=== PATIENT | female | born 2000 | race Two or more races ===

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

== ENCOUNTER 2021-02-10 15:51 | Emergency (ER) | payer OTHER ==
--- NOTE | 2021-02-10 18:17 | EDM.PDOC ---
ED HPI GENERAL MEDICAL PROBLEM - General Chief Complaint: Flank Pain Stated Complaint: POSS KIDNEY INFECTION Time Seen by Provider: 02/10/21 17:57 Source of Information: Reports: Patient History Limitations: Reports: No Limitations - History of Present Illness INITIAL COMMENTS - FREE TEXT/NARRATIVE: The patient presents with right flank pain and dysuria. This started a couple days ago with dysuria. She has some mild right flank pain. She never had a kidney stone before. She has no nausea or vomiting. She has no fever or chills. She has no cough, chest pain or shortness of breath. 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 (See Below) - Past Surgical History HEENT Surgical History: Reports: Tonsillectomy Social & Family History - Family History Family Medical History: No Pertinent Family History - Caffeine Use Caffeine Use: Reports: Coffee, Soda - Living Situation & Occupation Living situation: Reports: with Family ED ROS GENERAL - Review of Systems Review Of Systems: See Below Constitutional: Reports: No Symptoms HEENT: Reports: No Symptoms Respiratory: Reports: No Symptoms Cardiovascular: Reports: No Symptoms Endocrine: Reports: No Symptoms GI/Abdominal: Reports: No Symptoms : Reports: Dysuria, Flank Pain Musculoskeletal: Reports: Back Pain Skin: Reports: No Symptoms Neurological: Reports: No Symptoms ED EXAM, GI/ABD - Physical Exam Exam: See Below Exam Limited By: No Limitations General Appearance: Alert, No Apparent Distress Ears: Normal External Exam Nose: Normal Inspection Head: Atraumatic, Normocephalic Neck: Normal Inspection Respiratory/Chest: No Respiratory Distress, Lungs Clear, Normal Breath Sounds Cardiovascular: Regular Rate, Rhythm, No Edema, No Murmur, No Rub GI/Abdominal Exam: Soft, Non-Tender, No Organomegaly Back Exam: CVA Tenderness (R) (mild) Course - Vital Signs Last Recorded V/S: Last Vital Signs Temp 99.2 F 02/10/21 18:01 Pulse 76 02/10/21 18:01 Resp 16 02/10/21 18:01 BP 122/79 02/10/21 18:01 Pulse Ox 100 02/10/21 18:01 - Orders/Labs/Meds Labs: Laboratory Tests 02/10/21 02/10/21 02/10/21 Range/Units 18: 18:29 18:29 WBC 8.96 (3.98-10.04) K/mm3 RBC 5.06 (3.98-5.22) M/mm3 Hgb 15.1 D (11.2-15.7) gm/dl Hct 44.8 (34.1-44.9) % MCV 88.5 (79.4-94.8) fl MCH 29.8 (25.6-32.2) pg MCHC 33.7 (32.2-35.5) g/dl RDW Std Deviation 40.6 (36.4-46.3) fL Plt Count 294 (182-369) K/mm3 MPV 9.5 (9.4-12.3) fl Neut % (Auto) 66.6 (34.0-71.1) % Lymph % (Auto) 27.9 (19.3-51.7) % Crowley % (Auto) 4.1 L (4.7-12.5) % Eos % (Auto) 1.1 (0.7-5.8) Baso % (Auto) 0.2 (0.1-1.2) % Neut # (Auto) 5.96 (1.56-6.13) K/mm3 Lymph # (Auto) 2.50 (1.18-3.74) K/mm3 Crowley # (Auto) 0.37 H (0.24-0.36) K/mm3 Eos # (Auto) 0.10 (0.04-0.36) K/mm3 Baso # (Auto) 0.02 (0.01-0.08) K/mm3 Sodium 137 (136-145) mEq/L Potassium 4.0 (3.5-5.1) mEq/L Chloride 102 (98-107) mEq/L Carbon Dioxide 26 (21-32) mEq/L Anion Gap 13.0 (5-15) BUN 9 (7-18) mg/dL Creatinine 0.8 (0.55-1.02) mg/dL Est Cr Clr Drug Dosing 112.21 mL/min Estimated GFR (MDRD) > 60 (>60) mL/min BUN/Creatinine Ratio 11.3 L (14-18) Glucose 98 (70-99) mg/dL Calcium 9.4 (8.5-10.1) mg/dL Total Bilirubin 0.3 (0.2-1.0) mg/dL AST 19 (15-37) U/L ALT 22 (14-59) U/L Alkaline Phosphatase 89 (46-116) U/L Total Protein 8.1 (6.4-8.2) g/dl Albumin 4.2 (3.4-5.0) g/dl Globulin 3.9 gm/dL Albumin/Globulin Ratio 1.1 (1-2) Urine Color Yellow (Yellow) Urine Appearance Clear (Clear) Urine pH 7.0 (5.0-8.0) Ur Specific Ramah > or = 1.030 (1.005-1.030) Urine Protein Negative (Negative) Urine Glucose (UA) Negative (Negative) Urine Ketones Negative (Negative) Urine Occult Blood Negative (Negative) Urine Nitrite Negative (Negative) Urine Bilirubin Negative (Negative) Urine Urobilinogen 0.2 (0.2-1.0) Ur Leukocyte Esterase Negative (Negative) Urine RBC 0-5 (0-5) /hpf Urine WBC 0-5 (0-5) /hpf Ur Squamous Epith Cells 0-5 (0-5) /hpf Urine Bacteria Moderate H (FEW) /hpf Urine Mucus Moderate H (FEW) /hpf - Re-Assessments/Exams Free Text/Narrative Re-Assessment/Exam: 02/10/21 18:17 I ordered labs and a UA. 02/10/21 19:02 I am surprised the UA shows no UTI and there is no blood. Her labs look good. I will get her a prescription for some keflex and she can take it if she feels worse. Departure - Departure Time of Disposition: 19:15 Disposition: Home, Self-Care 01 Condition: Good Clinical Impression: Flank pain, Dysuria - Discharge Information *PRESCRIPTION DRUG MONITORING PROGRAM REVIEWED*: Not Applicable *COPY OF PRESCRIPTION DRUG MONITORING REPORT IN PATIENT PRIYA: Not Applicable Prescriptions: cephALEXin [Keflex] 500 mg PO BID #10 cap Referrals: Shelley Hilliard, POLLUTION CONTROL TECHNICIAN [Primary Care Provider] - 1 Week Forms: ED Department Discharge Additional Instructions: Drink plenty of fluids. Take tylenol or motrin for pain. If you continue to have symptoms start taking the keflex. Follow up with Shelley within a week. Please return if you are worse. Sepsis Event Note (ED) - Evaluation Sepsis Screening Result: No Definite Risk - Focused Exam Vital Signs: Vital Signs Temp Pulse Resp BP Pulse Ox 02/10/21 18:01 99.2 F 76 16 122/79 100
== END 2021-02-10 19:24 | disposition home or self-care (01) ==
LOC: JD.ED 15:51
DX: R10.9 Unspecified abdominal pain (principal); R30.0 Dysuria; Z88.6 Allergy status to analgesic agent
CPT/HCPCS: 36415; 80053; 81001; 85025; 99284

== ENCOUNTER 2021-10-13 19:18 | Inpatient (IN) | payer OTHER ==
[2021-10-13] MEDS ORDERED: Sodium Chloride 0.9% 10 ML Syringe FLUSH PRN (20:11)
[2021-10-13] MEDS ORDERED: Misoprostol 100 MCG Tab VAG ONE (20:13)
[2021-10-13] MEDS ORDERED: Oxytocin/Lactated Ringers 10 UNIT/1,000 ML BAG IV SCH (20:15)
[2021-10-13] MEDS ORDERED: Sodium Chloride 0.9% 10 ML Syringe FLUSH SCH (21:00)
[2021-10-13] MEDS ORDERED: ePHEDrine 50 MG/ML SDV IVPUSH PRN (22:09)
[2021-10-13] MEDS ORDERED: Bupivacaine/fentaNYL/NS 100 ML Bag EPIDUR PRN (22:09)
[2021-10-13] MEDS ORDERED: fentaNYL 100 MCG/2 ML SDV EPIDUR PRN (22:09)
[2021-10-13] MEDS ORDERED: diphenhydrAMINE 50 MG/ML SDV IVPUSH PRN (22:09)
[2021-10-13] MEDS: Lactated Ringers 1,000 ML IV SCH (22:55)
[2021-10-14] MEDS ORDERED: Bupivacaine 0.25% 10 ML SDV ONE
[2021-10-14] MEDS ORDERED: Ampicillin 2 GM in Sodium Chloride 0.9% 100 ML IV ONE ×2
[2021-10-14] MEDS ORDERED: Misoprostol 100 MCG Tab VAG PRN (00:15)
[2021-10-14] MEDS ORDERED: Metoclopramide 10 MG/2 ML SDV IVPUSH ONE (01:06)
[2021-10-14] MEDS ORDERED: Citric Acid/Sodium Citrate Solution 30 ML Cup PO ONE (01:06)
[2021-10-14] MEDS ORDERED: Oxytocin/Lactated Ringers 10 UNIT/1,000 ML BAG IV SCH (01:15)
[2021-10-14] MEDS ORDERED: fentaNYL 100 MCG/2 ML SDV ONE (01:48)
[2021-10-14] MEDS ORDERED: Ondansetron 4 MG/2 ML SDV ONE (01:49)
[2021-10-14] MEDS ORDERED: Ketorolac 30 MG/ML SDV ONE (01:49)
[2021-10-14] MEDS ORDERED: Lidocaine 2% with EPINEPHrine 1:200,000 20 ML SDV ONE (01:49)
[2021-10-14] MEDS ORDERED: Morphine PF 10 MG/10 ML SDV ONE (01:49)
[2021-10-14] MEDS ORDERED: Sodium Bicarbonate 8.4% 50 MEQ/50 ML SDV ONE (01:49)
[2021-10-14] MEDS ORDERED: Oxytocin 10 Units/1 ML SDV ONE ×2 (01:49→03:16)
[2021-10-14] MEDS ORDERED: ceFAZolin 2 GM Vial ONE (01:50)
[2021-10-14] MEDS ORDERED: Bupivacaine 0.5% 30 ML SDV ONE (01:57)
[2021-10-14] MEDS ORDERED: Lactated Ringers 1,000 ML ONE (02:08)
[2021-10-14] MEDS ORDERED: Phenylephrine HCl In 0.9% NaCl 1 MG/10 ML Vial ONE (02:24)
[2021-10-14] MEDS ORDERED: diphenhydrAMINE 50 MG/ML SDV IVPUSH PRN ×2 (02:59→04:13)
[2021-10-14] MEDS ORDERED: Ondansetron 4 MG/2 ML SDV IVPUSH PRN (02:59)
[2021-10-14] MEDS ORDERED: Meperidine 50 MG/ML Vial IVPUSH PRN (02:59)
[2021-10-14] MEDS ORDERED: fentaNYL 100 MCG/2 ML SDV IVPUSH PRN (02:59)
[2021-10-14] MEDS: Lactated Ringers 1,000 ML IV SCH (03:20)
[2021-10-14] MEDS ORDERED: Ampicillin 1 GM in Sodium Chloride 0.9% 100 ML IV SCH (04:00)
[2021-10-14] MEDS ORDERED: ePHEDrine 50 MG/ML SDV IVPUSH PRN (04:13)
[2021-10-14] MEDS ORDERED: Ketorolac 30 MG/ML SDV IVPUSH SCH (04:13)
[2021-10-14] MEDS ORDERED: Magnesium Sulfate/Water 6 GM in Premix Bag 1 BAG IV ONE (04:13)
[2021-10-14] MEDS ORDERED: Acetaminophen/oxyCODONE 325-5 MG Tab PO PRN (04:13)
[2021-10-14] MEDS ORDERED: Naloxone 0.4 MG/ML SDV IVPUSH PRN (04:13)
[2021-10-14] MEDS ORDERED: Magnesium Sulfate/Water 40 GM/1,000 ML BAG IV SCH (04:13)
[2021-10-14] MEDS ORDERED: Dextrose 5%-Lactated Ringers 1,000 ML IV SCH (04:13)
[2021-10-14] MEDS ORDERED: Calcium Gluconate 10% 1 GM/10 ML SDV IV PRN (04:13)
[2021-10-14] MEDS ORDERED: Magnesium Sulfate/Water 2 GM in Premix Bag 1 BAG IV ONE (04:26)
[2021-10-14] MEDS ORDERED: Magnesium Sulfate/Water 50 ML IV ONE (04:30)
[2021-10-14] MEDS ORDERED: Lactated Ringers 1,000 ML IV SCH (06:45)
[2021-10-14] MEDS: Ketorolac 30 MG/ML SDV IVPUSH SCH ×3 (09:19→20:36)
[2021-10-15] MEDS: Acetaminophen 325 MG Tab PO PRN ×2 (07:47→16:28)
[2021-10-15] MEDS: Acetaminophen/oxyCODONE 325-5 MG Tab PO PRN ×2 (09:23→18:29)
[2021-10-15] MEDS: Docusate Sodium 100 MG Cap PO SCH (11:29)
[2021-10-15] MEDS ORDERED: Potassium Chloride 20 MEQ Tab.ER PO ONE ×2 (20:00)
[2021-10-15] MEDS: Ondansetron 4 MG/2 ML SDV IVPUSH PRN (23:56)
[2021-10-16] MEDS: Acetaminophen/oxyCODONE 325-5 MG Tab PO PRN ×3 (05:47→14:28)
[2021-10-16] MEDS: Docusate Sodium 100 MG Cap PO SCH ×2 (05:47→11:03)
[2021-10-16] MEDS ORDERED: Potassium Chloride 20 MEQ Tab.ER PO ONE ×2 (06:21→10:30)
[2021-10-16] MEDS ORDERED: Magnesium Sulfate (4.06 MEQ/ML) 5 GM/10 ML SDV IV ONE (06:21)
[2021-10-16] MEDS: Ondansetron 4 MG/2 ML SDV IVPUSH PRN (06:24)
[2021-10-16] MEDS ORDERED: Magnesium Sulfate/Water 6 GM in Premix Bag 1 BAG IV ONE (06:30)
[2021-10-16] MEDS ORDERED: Magnesium Sulfate/Water 2 GM in Premix Bag 1 BAG IV ONE (06:40)
[2021-10-16] MEDS ORDERED: Magnesium Sulfate/Water 4 GM in Premix Bag 1 BAG IV ONE (07:00)
[2021-10-16] MEDS ORDERED: Measles, Mumps & Rubella Vaccine 0.5 ML SDV SUBCUT ONE (14:30)
== END 2021-10-16 17:55 | disposition home or self-care (01) | DRG 788 ==
LOC: JD.OBCHECK 19:18 → JD.OB 19:20 → JD.OBCHECK 20:10 → JD.OB 20:11 → OBSVTOIN 10-14 02:11 → JD.OB 10-14 02:12
PROVIDERS: ADMIT Obstetrics & Gynecology; ATTEND Obstetrics & Gynecology
PROC: 10D00Z1 Extraction of Products of Conception, Low, Open Approach (ICD-10-PCS; principal; 2021-10-14)
PROC: 3E0P7VZ Introduction of Hormone into Female Reproductive, Via Natural or Artificial Opening (ICD-10-PCS; 2021-10-14)
DX: O14.14 Severe pre-eclampsia complicating childbirth (principal); Z3A.37 37 weeks gestation of pregnancy; Z37.0 Single live birth; O99.824 Streptococcus B carrier state complicating childbirth; O76 Abnormality in fetal heart rate and rhythm complicating labor and delivery; E87.6 Hypokalemia; O99.285 Endocrine, nutritional and metabolic diseases complicating the puerperium; E83.42 Hypomagnesemia; O99.214 Obesity complicating childbirth
CPT/HCPCS: 01967; 01968; 36415; 51702; 59025; 80048; 82565; 82570; 83615; 83735; 84132; 84156; 84450; 84460; 84520; 84550; 85025; 86592; 86850; 86900; 86901; 90471; 90707; A9270-GY; J0290; J0690; J1200; J1885; J2274; J2405; J2590; J2765; J3010; J3475; J3490; J7120

== ENCOUNTER 2021-11-30 21:16 | Emergency (ER) | payer OTHER ==
[2021-11-30] MEDS ORDERED: HYDROmorphone 0.5 MG/0.5 ML Syringe IVPUSH ONE (23:00)
[2021-11-30] MEDS ORDERED: Sodium Chloride 0.9% 1,000 ML IV SCH (23:00)
[2021-11-30] MEDS ORDERED: Ondansetron 4 MG/2 ML SDV IVPUSH ONE (23:00)
[2021-11-30] MEDS ORDERED: Iopamidol 612 MG/ML 100 ML Bottle IVPUSH ONE (23:07)
[2021-11-30 23:54] LABS: ESTIMATED GFR 93 mL/min (>60)
== END 2021-12-01 01:12 | disposition home or self-care (01) ==
LOC: JD.ED 21:16
DX: R10.32 Left lower quadrant pain (principal); E66.9 Obesity, unspecified; Z68.35 Body mass index [BMI] 35.0-35.9, adult; Z79.899 Other long term (current) drug therapy; Z86.16 Personal history of COVID-19; Z88.6 Allergy status to analgesic agent
CPT/HCPCS: 36415; 74177; 80053; 81001; 81025; 83690; 83735; 85007; 85027; 96361; 96374; 96375; 99284; J1170; J2405; J7030; Q9967; 99283

== ENCOUNTER 2022-10-21 06:20 | Inpatient (IN) | payer OTHER ==
[2022-10-21 07:21] LABS: BASOPHILS ABSOLUTE AUTO 0.01 K/mm3 (0.01-0.08); BASOPHILS PERCENT AUTO 0.1 % (0.1-1.2); EOSINOPHILS ABSOLUTE AUTO 0.15 K/mm3 (0.04-0.36); EOSINOPHILS PERCENT AUTO 2.1 (0.7-5.8); HEMATOCRIT 33.1 % (34.1-44.9); IMMATURE GRAN ABSOLUTE AUTO 0.02 K/mm3 (0.00-0.10); IMMATURE GRAN PERCENT AUTO 0.3 % (<=1.0); LYMPHOCYTES ABSOLUTE AUTO 2.04 K/mm3 (1.18-3.74); LYMPHOCYTES PERCENT AUTO 28.4 % (19.3-51.7); MEAN CORPUSCULAR HEMOGLOBIN 27.4 pg (25.6-32.2); MEAN CORPUSCULAR HGB CONC 32.6 g/dl (32.2-35.5); MEAN PLATELET VOLUME 10.8 fl (9.4-12.3); MONOCYTES ABSOLUTE AUTO 0.61 K/mm3 (0.24-0.36); MONOCYTES PERCENT AUTO 8.5 % (4.7-12.5); NEUTROPHILS ABSOLUTE AUTO 4.36 K/mm3 (1.56-6.13); NEUTROPHILS PERCENT AUTO 60.6 % (34.0-71.1); RED BLOOD CELL COUNT 3.94 M/mm3 (3.98-5.22); WHITE BLOOD CELL COUNT,WBC 7.19 K/mm3 (3.98-10.04)
[2022-10-21 07:25] LABS: HEMOGLOBIN 10.8 gm/dl (11.2-15.7); PLATELET COUNT,PLT 164 K/mm3 (182-369)
[2022-10-21 07:33] LABS: CREATININE 0.6 mg/dL (0.55-1.02); EST CRCL DRUG DOSING (CG) 141.81 mL/min
[2022-10-21 07:38] LABS: ALANINE AMINOTRANSFERASE,ALT 19 U/L (14-59); ASPARTATE AMNIOTRANSFERASE,AST 14 U/L (15-37)
[2022-10-21] MEDS ORDERED: Sodium Chloride 0.9% 10 ML Syringe FLUSH PRN (07:39)
[2022-10-21] MEDS ORDERED: Nalbuphine 10 MG/0.5 ML Syringe IVPUSH PRN (07:39)
[2022-10-21] MEDS ORDERED: Ondansetron 4 MG/2 ML SDV IVPUSH PRN (07:39)
[2022-10-21] MEDS ORDERED: Oxytocin/Lactated Ringers 10 UNIT/1,000 ML BAG IV SCH ×2 (07:45)
[2022-10-21] MEDS ORDERED: Lactated Ringers 1,000 ML IV SCH (07:45)
[2022-10-21 07:49] LABS: CREATININE,URINE RAND 29.6 mg/dL (30.0-125.0); PROTEIN CREATININE RATIO,URINE 503.4 mg/g (0-149); PROTEIN,URINE RANDOM 14.9 mg/dL (0.0-11.8)
[2022-10-21] MEDS ORDERED: Penicillin G Potassium 5 MILLUNITS in Sodium Chloride 0.9% 100 ML IV ONE (08:00)
[2022-10-21] MEDS: Calcium Carbonate 500 MG Tab.Chew PO PRN ×3 (08:13→22:37)
[2022-10-21] MEDS: Sodium Chloride 0.9% 10 ML Syringe FLUSH SCH (11:21)
[2022-10-21] MEDS: Penicillin G Potassium 2.5 MILLUNITS in Sodium Chloride 0.9% 100 ML IV SCH ×3 (11:58→19:58)
[2022-10-21] MEDS ORDERED: Acetaminophen 325 MG Tab PO PRN (15:39)
[2022-10-21] MEDS ORDERED: fentaNYL 100 MCG/2 ML SDV EPIDUR PRN (15:56)
[2022-10-21] MEDS ORDERED: ePHEDrine 50 MG/ML SDV IVPUSH PRN (15:56)
[2022-10-21] MEDS ORDERED: diphenhydrAMINE 50 MG/ML SDV IVPUSH PRN (15:56)
[2022-10-21] MEDS ORDERED: Bupivacaine/fentaNYL/NS 100 ML Bag EPIDUR PRN (15:56)
[2022-10-21] MEDS ORDERED: Labetalol 100 MG/20 ML MDV IVPUSH STA (23:50)
[2022-10-22] MEDS ORDERED: Lidocaine 1% 10 ML MDV ONE
[2022-10-22] MEDS ORDERED: Magnesium Sulfate/Water 2 GM in Premix Bag 1 BAG IV ONE (00:11)
[2022-10-22] MEDS ORDERED: Calcium Gluconate 10% 1 GM/10 ML SDV IV PRN (00:11)
[2022-10-22] MEDS ORDERED: Magnesium Sulfate/Water 4 GM in Premix Bag 1 BAG IV ONE (00:11)
[2022-10-22] MEDS ORDERED: Azithromycin 500 MG in Sodium Chloride 0.9% 250 ML IV ONE (00:11)
[2022-10-22] MEDS ORDERED: Metoclopramide 10 MG/2 ML SDV IVPUSH ONE (00:13)
[2022-10-22] MEDS ORDERED: ceFAZolin 2 GM in Sodium Chloride 0.9% 50 ML IV ONE (00:13)
[2022-10-22] MEDS ORDERED: Citric Acid/Sodium Citrate Solution 30 ML Cup PO ONE (00:13)
[2022-10-22] MEDS: Magnesium Sulfate/Water 40 GM/1,000 ML BAG IV SCH ×2 (00:26→20:38)
[2022-10-22] MEDS ORDERED: ceFAZolin 2 GM Vial ONE (00:29)
[2022-10-22] MEDS ORDERED: Sodium Bicarbonate 8.4% 50 MEQ/50 ML SDV ONE (00:29)
[2022-10-22] MEDS ORDERED: Lidocaine 0.5% 50 ML SDV ONE (00:29)
[2022-10-22] MEDS ORDERED: fentaNYL 100 MCG/2 ML SDV ONE (00:31)
[2022-10-22] MEDS ORDERED: Dexmedetomidine 200 MCG/2 ML SDV ONE (00:50)
[2022-10-22] MEDS ORDERED: Lactated Ringers 1,000 ML ONE (01:02)
[2022-10-22] MEDS ORDERED: Morphine PF 10 MG/10 ML SDV ONE (01:06)
[2022-10-22] MEDS ORDERED: Oxytocin 10 Units/1 ML SDV ONE (01:10)
[2022-10-22] MEDS ORDERED: Carboprost Tromethamine 250 MCG/1 ML Amp ONE (01:12)
[2022-10-22] MEDS ORDERED: Misoprostol 200 MCG Tab ONE (01:15)
[2022-10-22] MEDS ORDERED: Tranexamic Acid 1,000 MG/10 ML Vial ONE (01:16)
[2022-10-22] MEDS ORDERED: Ketorolac 30 MG/ML SDV ONE (01:35)
[2022-10-22] MEDS ORDERED: Ondansetron 4 MG/2 ML SDV ONE (01:39)
[2022-10-22] MEDS ORDERED: Ondansetron 4 MG/2 ML SDV IVPUSH PRN (02:03)
[2022-10-22] MEDS ORDERED: fentaNYL 100 MCG/2 ML SDV IVPUSH PRN (02:03)
[2022-10-22] MEDS ORDERED: diphenhydrAMINE 50 MG/ML SDV IVPUSH PRN ×2 (02:03→02:56)
[2022-10-22] MEDS: Penicillin G Potassium 2.5 MILLUNITS in Sodium Chloride 0.9% 100 ML IV SCH (02:53)
[2022-10-22] MEDS ORDERED: ePHEDrine 50 MG/ML SDV IVPUSH PRN (02:56)
[2022-10-22] MEDS ORDERED: Acetaminophen/oxyCODONE 325-5 MG Tab PO PRN (02:56)
[2022-10-22] MEDS ORDERED: Sodium Chloride 0.9% 10 ML Syringe FLUSH PRN (02:56)
[2022-10-22] MEDS ORDERED: Ondansetron 4 MG/2 ML SDV IV PRN (02:56)
[2022-10-22] MEDS ORDERED: Naloxone 0.4 MG/ML SDV IVPUSH PRN (02:56)
[2022-10-22] MEDS: Acetaminophen/oxyCODONE 325-5 MG Tab PO PRN ×3 (03:31→23:28)
[2022-10-22] MEDS: Sodium Chloride 0.9% 10 ML Syringe FLUSH SCH (03:49)
[2022-10-22] MEDS: Ketorolac 30 MG/ML SDV IVPUSH SCH ×3 (08:06→20:41)
[2022-10-22] MEDS: Docusate Sodium 100 MG Cap PO PRN (08:26)
[2022-10-22] MEDS ORDERED: Calcium Carbonate 500 MG Tab.Chew PO PRN (09:53)
[2022-10-22] MEDS ORDERED: Lactated Ringers 1,000 ML IV SCH (15:45)
[2022-10-22 16:58] LABS: HEMATOCRIT 25.8 % (34.1-44.9); HEMOGLOBIN 8.3 gm/dl (11.2-15.7); MEAN CORPUSCULAR HEMOGLOBIN 27.6 pg (25.6-32.2); MEAN CORPUSCULAR HGB CONC 32.2 g/dl (32.2-35.5); MEAN CORPUSCULAR VOLUME 85.7 fl (79.4-94.8); MEAN PLATELET VOLUME 11.1 fl (9.4-12.3); PLATELET COUNT,PLT 144 K/mm3 (182-369); RED BLOOD CELL COUNT 3.01 M/mm3 (3.98-5.22); WHITE BLOOD CELL COUNT,WBC 12.05 K/mm3 (3.98-10.04)
[2022-10-23 06:09] LABS: HEMATOCRIT 27.9 % (34.1-44.9); HEMOGLOBIN 8.9 gm/dl (11.2-15.7); MEAN CORPUSCULAR HEMOGLOBIN 27.6 pg (25.6-32.2); MEAN CORPUSCULAR HGB CONC 31.9 g/dl (32.2-35.5); MEAN CORPUSCULAR VOLUME 86.6 fl (79.4-94.8); MEAN PLATELET VOLUME 11.4 fl (9.4-12.3); PLATELET COUNT,PLT 180 K/mm3 (182-369); RED BLOOD CELL COUNT 3.22 M/mm3 (3.98-5.22); WHITE BLOOD CELL COUNT,WBC 11.03 K/mm3 (3.98-10.04)
[2022-10-23] MEDS: Acetaminophen/oxyCODONE 325-5 MG Tab PO PRN ×3 (10:45→23:15)
[2022-10-23] MEDS: Simethicone 80 MG Tab.Chew PO PRN ×2 (14:57→21:18)
[2022-10-23] MEDS: Docusate Sodium 100 MG Cap PO PRN (17:23)
[2022-10-24] MEDS: Acetaminophen/oxyCODONE 325-5 MG Tab PO PRN (07:54)
[2022-10-24] MEDS: Docusate Sodium 100 MG Cap PO PRN (07:55)
== END 2022-10-24 13:00 | disposition home or self-care (01) | DRG 788 ==
LOC: JD.OBCHECK 06:20 → JD.OB 06:24 → JD.OBCHECK 07:39 → JD.OB 07:39 → OBSVTOIN 10-22 01:09 → JD.OB 10-22 01:10
PROVIDERS: ADMIT Obstetrics & Gynecology; ATTEND Obstetrics & Gynecology
PROC: 10D00Z1 Extraction of Products of Conception, Low, Open Approach (ICD-10-PCS; principal; 2022-10-22)
PROC: 10907ZC Drainage of Amniotic Fluid, Therapeutic from Products of Conception, Via Natural or Artificial Opening (ICD-10-PCS; principal; 2022-10-22)
PROC: 10H07YZ Insertion of Other Device into Products of Conception, Via Natural or Artificial Opening (ICD-10-PCS; principal; 2022-10-22)
PROC: 3E033VJ Introduction of Other Hormone into Peripheral Vein, Percutaneous Approach (ICD-10-PCS; principal; 2022-10-22)
DX: O14.14 Severe pre-eclampsia complicating childbirth (principal); Z37.0 Single live birth; O72.1 Other immediate postpartum hemorrhage; O99.824 Streptococcus B carrier state complicating childbirth; O62.2 Other uterine inertia; Z3A.39 39 weeks gestation of pregnancy; Z88.8 Allergy status to other drugs, medicaments and biological substances; Z79.82 Long term (current) use of aspirin; Z79.899 Other long term (current) drug therapy; Z98.890 Other specified postprocedural states; Z90.89 Acquired absence of other organs; Z56.0 Unemployment, unspecified
CPT/HCPCS: 01967; 36415; 51702; 59025; 82565; 82570; 84156; 84450; 84460; 85025; 85027; 86592; 86850; 86900; 86901; 94762; A9270-GY; C1726; J0456; J0690; J1200; J1885; J2274; J2405; J2540; J2590; J2765; J3010; J3475; J3490; J7050; J7120

== ENCOUNTER 2022-10-25 23:21 | Observation (INO) | payer OTHER ==
[2022-10-25] MEDS ORDERED: Non-Formulary Medication 1 Each (Fluticasone Propionate 9.9 ML Spray.Susp) NS PRN (23:33)
[2022-10-25] MEDS ORDERED: Docusate Sodium 100 MG Cap PO PRN (23:33)
[2022-10-25] MEDS ORDERED: Non-Formulary Medication 1 Each (Albuterol 8.5 GM Hfa.Aer.Ad) IH PRN (23:33)
[2022-10-25] MEDS ORDERED: Calcium Gluconate 10% 1 GM/10 ML SDV IV PRN (23:35)
[2022-10-25] MEDS ORDERED: Sodium Chloride 0.9% 10 ML Syringe FLUSH PRN (23:35)
[2022-10-26 00:04] LABS: BASOPHILS ABSOLUTE AUTO 0.01 K/mm3 (0.01-0.08); BASOPHILS PERCENT AUTO 0.1 % (0.1-1.2); EOSINOPHILS ABSOLUTE AUTO 0.23 K/mm3 (0.04-0.36); HEMATOCRIT 26.8 % (34.1-44.9); HEMOGLOBIN 8.5 gm/dl (11.2-15.7); IMMATURE GRAN ABSOLUTE AUTO 0.04 K/mm3 (0.00-0.10); IMMATURE GRAN PERCENT AUTO 0.5 % (<=1.0); LYMPHOCYTES ABSOLUTE AUTO 2.67 K/mm3 (1.18-3.74); LYMPHOCYTES PERCENT AUTO 34.7 % (19.3-51.7); MEAN CORPUSCULAR HEMOGLOBIN 27.5 pg (25.6-32.2); MEAN CORPUSCULAR HGB CONC 31.7 g/dl (32.2-35.5); MEAN CORPUSCULAR VOLUME 86.7 fl (79.4-94.8); MEAN PLATELET VOLUME 9.9 fl (9.4-12.3); MONOCYTES ABSOLUTE AUTO 0.53 K/mm3 (0.24-0.36); MONOCYTES PERCENT AUTO 6.9 % (4.7-12.5); NEUTROPHILS ABSOLUTE AUTO 4.22 K/mm3 (1.56-6.13); NEUTROPHILS PERCENT AUTO 54.8 % (34.0-71.1); PLATELET COUNT,PLT 232 K/mm3 (182-369); RED BLOOD CELL COUNT 3.09 M/mm3 (3.98-5.22)
[2022-10-26] MEDS: Ketorolac 30 MG/ML SDV IVPUSH SCH ×3 (00:27→11:42)
[2022-10-26] MEDS: Labetalol 100 MG Tab PO SCH ×2 (00:27→09:18)
[2022-10-26 00:30] LABS: ALANINE AMINOTRANSFERASE,ALT 18 U/L (14-59); ASPARTATE AMNIOTRANSFERASE,AST 22 U/L (15-37); BLOOD UREA NITROGEN,BUN 7 mg/dL (7-18); CREATININE 0.6 mg/dL (0.55-1.02); ESTIMATED GFR 129 mL/min (>60); LACTATE DEHYDROGENASE,LDH 253 U/L (81-234); URIC ACID 3.9 mg/dL (2.6-6.0)
[2022-10-26 03:27] LABS: CREATININE,URINE RAND 63.3 mg/dL (30.0-125.0); PROTEIN,URINE RANDOM 26.9 mg/dL (0.0-11.8)
[2022-10-26] MEDS ORDERED: Sodium Chloride 0.9% 10 ML Syringe FLUSH SCH (09:00)
[2022-10-26] MEDS ORDERED: Ferrous Sulfate 324 MG Tab.EC PO SCH (09:00)
[2022-10-26] MEDS ORDERED: Prenatal Multivitamin with Calcium/Folic Acid/Iron Tab PO SCH (09:00)
[2022-10-26] MEDS ORDERED: Acetaminophen/oxyCODONE 325-5 MG Tab PO PRN (09:15)
== END 2022-10-26 17:41 | disposition home or self-care (01) ==
LOC: JD.OB 23:21 → INTOOBSV 23:21
PROVIDERS: ADMIT Obstetrics & Gynecology; ATTEND Obstetrics & Gynecology
DX: O14.95 Unspecified pre-eclampsia, complicating the puerperium (principal); O99.53 Diseases of the respiratory system complicating the puerperium; J45.909 Unspecified asthma, uncomplicated; O99.63 Diseases of the digestive system complicating the puerperium; K21.9 Gastro-esophageal reflux disease without esophagitis; O99.345 Other mental disorders complicating the puerperium; F41.9 Anxiety disorder, unspecified; F32.A Depression, unspecified; O99.215 Obesity complicating the puerperium; E66.9 Obesity, unspecified; Z88.8 Allergy status to other drugs, medicaments and biological substances; Z79.899 Other long term (current) drug therapy; Z68.36 Body mass index [BMI] 36.0-36.9, adult
CPT/HCPCS: 36415; 82565; 82570; 83615; 84156; 84450; 84460; 84520; 84550; 85025; 96374; 96376; A9270; G0378; J1885; J3490; 99222; 99238